=== PATIENT | male | born 1935 | race Caucasian/White ===

== ENCOUNTER 2018-05-21 11:31 | Observation (INO) ==
[2018-05-21 11:47] LABS: ABG Base Excess -9.8 mmol/L (-2.4-2.3); ABG HCO3 15.8 mmhg (22.0-26.0); ABG Oxygen Saturation 94 % (90-100); ABG PCO2 29.4 mmhg (35.0-45.0); ABG PH 7.35 mmol/L (7.35-7.45); ABG PO2 73.5 mmhg (80-100); ABG TCO2 16.7 mmhg (23-27)
[2018-05-21 11:49] LABS: Allen's Test Acceptable; Oxygen 21 %
[2018-05-21 11:55] LABS: Basophils # 0.1 K/mm3 (0-0.2); Basophils % 0.7 % (0.1-2.0); Eosinophils # 0.2 K/mm3 (0.0-0.4); Eosinophils % 2.3 % (0.1-12.0); Hematocrit 44.9 % (42.0-52.0); Hemoglobin 14.8 g/dL (14.1-18.0); Lymphocytes # 2.8 K/mm3 (0.7-4.5); Lymphocytes % 35.2 % (10-50); Mean Corpuscular Hemoglobin 28.3 pg (27.0-31.2); Mean Corpuscular Volume 85.8 fl (80-94); Mean Platelet Volume 7.8 fl (7.4-10.4); Monocytes # 0.5 K/mm3 (0.1-1.0); Monocytes % 5.9 % (1.7-9.3); Neutrophils # 4.5 K/mm3 (1.8-7.8); Neutrophils % 55.9 % (37.0-80.0); Platelet Count 240 K/mm3 (142-424); Red Blood Count 5.23 M/mm3 (4.60-6.20); Red Cell Distribution Width 13.9 % (11.5-17.5)
[2018-05-21 12:06] LABS: Anion Gap 21.7 mEq/L (5-15); Blood Urea Nitrogen 27 mg/dL (7-18); Calcium 8.9 mg/dL (8.5-10.1); Carbon Dioxide 19 mmol/L (21.0-32.0); Chloride 106 mmol/L (98-107); Glucose 139 mg/dL (74-106); Sodium 142 mmol/L (136-145)
[2018-05-21 12:08] LABS: Potassium 4.7 mmoL/L (3.5-5.1)
--- NOTE | 2018-05-21 12:25 | Emergency Department Note ---
ED Disposition Clinical Impression: Syncope and collapse Disposition: Admitted as Observation Condition on Discharge: Good Instructions: DI for Syncope in Adults (Fainting), DI for Syncope in Children (Fainting) Referrals: Provider,Referral, [Primary Care Provider] - Time of Disposition: 13:35 - Critical Care Critical Care Time: No Attestation: On 05/21/18, the high probability of a clinically significant, sudden or life threatening deterioration of the following system(s) required my full and direct attention, intervention and personal management. The time I documented below is in addition to time spent performing reported procedures but includes the following listed in this critical care notation. Medical Decision Making - Medical Records Medical records reviewed: Yes: I reviewed the patient's medical records. - Bony Inquiry Pt receiving controlled substance: No Bony was queried for this patient: No Vital Signs: 05/21/18 11:28 05/21/18 12:21 05/21/18 12:37 Temperature 96 F L 96.6 F L Temperature Source Tympanic Oral Pulse Rate [Left Radial] 86 71 61 Respiratory Rate 18 16 Blood Pressure [Right Arm] 158/93 H 131/74 147/71 H Blood Pressure Mean [Right Arm] 114 93 96 Blood Pressure Source [Right Arm] Automatic Cuff Automatic Cuff Automatic Cuff Blood Pressure Position [Right Arm] Sitting Supine Supine 02 Sat by Pulse Oximetry 95 95 95 Oxygen Delivery Method Room Air Room Air Room Air 05/21/18 13:04 Temperature 97.5 F L Temperature Source Oral Pulse Rate [Left Radial] 61 Respiratory Rate 16 Blood Pressure [Right Arm] 153/70 H Blood Pressure Mean [Right Arm] 97 Blood Pressure Source [Right Arm] Automatic Cuff Blood Pressure Position [Right Arm] Supine 02 Sat by Pulse Oximetry 96 Oxygen Delivery Method Room Air - Lab Data Lab results reviewed: Yes: I reviewed the patient's lab results. Lab Results 05/21/18 11:32: WBC 8.0, RBC 5.23, Hgb 14.8, Hct 44.9, MCV 85.8, MCH 28.3, MCHC 33.0, RDW 13.9, Plt Count 240, MPV 7.8, Neut % (Auto) 55.9, Lymph % (Auto) 35.2, [place] % (Auto) 5.9, Eos % (Auto) 2.3, Baso % (Auto) 0.7, Neut # (Auto) 4.5, Lymph # (Auto) 2.8, [place] # (Auto) 0.5, Eos # (Auto) 0.2, Baso # (Auto) 0.1 05/21/18 11:32: Sodium 142, Potassium 4.7, Chloride 106, Carbon Dioxide 19 L, Anion Gap 21.7 H, BUN 27 H, Creatinine 1.64 H, Estimated Creat Clear 39, Estimated GFR 40 L, Est GFR ( Amer) 49 L, Glucose 139 H, Calcium 8.9, Troponin I < 0.02 05/21/18 11:42: Specimen Source Right radial, O2 % 21, ABG pH 7.35, ABG pCO2 29.4 L, ABG pO2 73.5 L, ABG HCO3 15.8 L, ABG Total CO2 16.7 L, ABG O2 Saturation 94, ABG Base Excess -9.8 L, Lazaro Test Acceptable Result diagrams: 05/21/18 11:32 05/21/18 11:32 Orders (Tests/Meds): ED MEDICATIONS Generic Name Dose Route Start Last Admin Trade Name Freq PRN Reason Stop Dose Admin Sodium Chloride 10 ml 05/21/18 11:42 Saline Flush 10ml Syringe IV 06/20/18 11:41 NEEDED PRN Maintain IV Site Discontinued Medications Generic Name Dose Route Start Last Admin Trade Name Freq PRN Reason Stop Dose Admin Ondansetron HCl 4 mg 05/21/18 12:26 05/21/18 12:40 Zofran 4mg/2ml Vial IV 05/21/18 12:27 4 mg ONCE ONE Administration - Physician Consults Physician Consulted: dirk Reason -: Admission, Pt condition Comment/Response: obs/tele/ echo today General Adult HPI - General Chief complaint: Syncope Stated complaint: syncope Time Seen by Provider: 05/21/18 12:18 Mode of Arrival: EMS Source of Information: Patient, EMS Limitations: No Limitations Description of Symptoms (Recalled from ER Triage Doc. by RN): syncope - History of Present Illness HPI narrative: syncope, ruq pain on arrival only with palpation. Nausea is chief complaint on my visit. History ascvd, remote stent - Related Data Home Medications Medication Instructions Recorded Confirmed amlodipine 10 mg tablet 10 mg PO ONCE 04/13/17 02/22/18 aspirin 325 mg tablet 325 mg PO ONCE tab 04/13/17 02/22/18 indomethacin 25 mg capsule 25 mg PO TID 04/13/17 02/22/18 losartan 100 mg tablet 100 mg PO ONCE tab 04/13/17 02/22/18 metoprolol tartrate 25 mg tablet 25 mg PO DAILY 04/13/17 02/22/18 naproxen 500 mg tablet 500 mg PO Q12H PRN 04/13/17 02/22/18 rosuvastatin 10 mg tablet 10 mg PO ONCE 04/13/17 02/22/18 Allergies Allergy/AdvReac Type Severity Reaction Status Date / Time ramipril [RAMIPRIL] Allergy Mild Verified 10/12/17 09:06 [facility] History - Hepatitis A Screen Drug use history?: No High risk sexual behaviors?: No History of sexually transmitted infection?: No Currently employed?: No Childcare worker?: No Do you have indoor plumbing?: Yes Do you have electricity?: Yes Attestation statement:: This patient has been screened for Hepatitis A risk factors. I have reviewed the patient's past medical history: Yes Medical History: Reports:: Coronary Artery Disease, Hyperlipidemia, Hypertension, Myocardial Infarction Denies:: Cancer, Diabetes Mellitus Type 1, Diabetes Mellitus Type 2, Internal Pacemaker, MRSA, Seizures Other Medical History: Reports: Arthritis, Other. Denies: Blood Transfusion Reaction Other Surgeries: Yes: Colonoscopy, Coronary Stent, Other (eye surgery). No: Pacemaker Amputation: No Fractures: No - Social History Smoking Status: Former smoker Tobacco Type: cigarettes Alcohol Intake: never Substance Use Type: denies use Occupational Status: employed Housing: house Household Members: none - Psychiatric History Expresses thoughts of harming self/others: None Suicide Plan Description: No Plan Family Hx:: No significant family history ROS Obtained: Yes All systems reviewed & no additional complaints - Constitutional Constitutional: Denies chills, Denies fever(s) - ENT Ears, Nose, Mouth, and Throat: Reports system reviewed and no additional compla ints, except as docu, Denies sore throat, Denies throat swelling - Cardiovascular Cardiovascular: Denies chest pain, Denies chest pain at rest, Denies dyspnea - Respiratory Respiratory: Yes system reviewed and no additional complaints, except as docu, No chest congestion, No cough, No dyspnea on exertion - Gastrointestinal Gastrointestingal: Reports: abdominal pain, nausea. Denies: vomiting - Musculoskeletal Musculoskeletal: Denies joint stiffness, Denies joint swelling - Integumentary/Breasts Skin/Breast: Denies rash - Neurologic Neurologic: Denies focal weakness, Reports syncope Physical Exam - General General appearance: alert, in no apparent distress - Head Head exam: atraumatic, normocephalic, normal inspection - Eye Eye exam: Present: normal appearance, PERRL, EOMI - Neck Neck exam: Present: normal inspection, full ROM, trachea midline. Absent: meningismus, lymphadenopathy - Chest Chest inspection: Present: normal inspection, symmetric chest wall rise. Absent: tenderness - Respiratory Respiratory exam: Present: normal lung sounds bilaterally. Absent: respiratory distress - Cardiovascular Cardiovascular exam: Present: regular rate, normal rhythm. Absent: JVD - Abdominal Exam Abdominal exam: Present: soft, tenderness. Absent: distention, mass Abdominal tenderness: Present: RUQ - Neurological Exam Neurological exam: Present: alert, oriented X3 - Psychiatric Psychiatric exam: Present: normal affect, normal mood - Skin Skin exam: Present: warm, dry, intact, normal color
--- NOTE | 2018-05-21 15:10 | Pharmacy Consult Notes ---
[facility] Pharmacy VTE Monitoring - Patient Demographics Admission date: 05/21/18 Report Date: 05/21/18 Time: 15:10 Allergies/Adverse Reactions: Patient Allergies ramipril [RAMIPRIL] Allergy (Mild, Verified 10/12/17 09:06) Height: 1.73 m Weight: 83.915 kg Patient Problems: Current Active Problems Syncope and collapse (Acute) - VTE Risk Labs: VTE Related Lab Results Hgb 14.8 g/dL (14.1-18.0) 05/21/18 11:32 Hct 44.9 % (42.0-52.0) 05/21/18 11:32 Plt Count 240 K/mm3 (142-424) 05/21/18 11:32 BUN 27 mg/dL (7-18) H 05/21/18 11:32 Creatinine 1.64 mg/dL (0.70-1.30) H 05/21/18 11:32 Estimated Creat Clear 39 mL/min (50-200) 05/21/18 11:32 - Prophylaxis VTE Prophylaxis Ordered?: Yes Types of VTE Prophylaxis: TEDS Thigh High Location of Applied Device: Bilateral Lower Extremeties - VTE Diagnosis Confirmed Treatment or plan recommended: Continue Current Treatment
--- NOTE | 2018-05-21 16:32 | History & Physical Report ---
*Admission Date: 05/21/18 *Chief complaint: syncopal episode *History of present illness: 83 year old male presents to ER via EMS after a witnessed syncopal episode. 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 Denies lightheadedness, changes in vision, headache, weakness, chest pain, pressure, palpitations, or SOB. Imaging in the ER was all negative. Had an episode similar to this three years ago. Dr Alexis took him off metformin after doing blood work and noting he was within normal glucose range. History of cardiac stenting in [address] Garrison, takes Aspirin 325 mg daily. [facility] History Medical History: Reports:: Coronary Artery Disease, Hyperlipidemia, Hypertension, Myocardial Infarction Denies:: Cancer, Diabetes Mellitus Type 1, Diabetes Mellitus Type 2, Internal Pacemaker, MRSA, Seizures *Have you ever received a pneumonia vaccine?: Yes *Have you received a flu vaccine this season?: Yes Other Medical History: Reports: Arthritis, Cataracts, Other. Denies: Blood Transfusion Reaction Other Surgeries: Yes: Colonoscopy, Coronary Stent, Other (eye surgery). No: Pacemaker Amputation: No Fractures: No - *Social History Educational Level: Completed Grade School Smoking Status: Former smoker Tobacco Type: cigarettes # Packs/Day (cigarettes): 2 Smoking End Date: 20 years ago Alcohol Intake: never Substance Use Type: denies use *Occupational Status:: employed Housing: house Household Members: none *Travel in the last 8 weeks: None - Psychiatric History Expresses thoughts of harming self/others: None Suicide Plan Description: No Plan Family Hx:: No significant family history Review of Systems - Constitutional Denies fever(s), Denies headache(s), Denies weakness - Eyes Denies blurry vision, Denies change in vision, Denies loss of vision - *Cardiovascular Denies chest pain, Denies generalized swelling, Denies irregular heart rhythm, Denies rapid, pounding, or irregular heartbeat - *Respiratory Denies shortness of breath with activity - *Gastrointestinal Denies abdominal pain, Denies nausea, Denies vomiting - *Musculoskeletal Denies abnormal walking, Denies numbness - *Neurologic Reports fainting, Denies abnormal walking, Denies abnormal movements, Denies unsteadiness, Denies dizziness, Denies localized weakness, Denies headache(s), Denies weakness Meds Home Medications Medication Instructions Recorded Confirmed Type amlodipine 10 mg tablet 10 mg PO DAILY 04/13/17 05/21/18 History aspirin 325 mg tablet 325 mg PO DAILY tab 04/13/17 05/21/18 History indomethacin 25 mg capsule 25 mg PO TID 04/13/17 05/21/18 History losartan 100 mg tablet 100 mg PO DAILY tab 04/13/17 05/21/18 History metoprolol tartrate 25 mg tablet 25 mg PO BID 04/13/17 05/21/18 History naproxen 500 mg tablet 500 mg PO Q12H PRN 04/13/17 05/21/18 History Meclizine HCl [Meclizine 12.5mg 12.5 mg PO TIDP PRN 05/21/18 05/21/18 History Tab] Rosuvastatin Calcium 10 mg PO HS 05/21/18 05/21/18 History Allergies Allergy/AdvReac Type Severity Reaction Status Date / Time ramipril [RAMIPRIL] Allergy Mild Verified 10/12/17 09:06 Exam Vital signs and Labs for Last 24 Hours: Temp Pulse Resp BP Pulse Ox 98.8 F 63 20 170/88 H 96 05/21/18 15:02 05/21/18 15:02 05/21/18 15:02 05/21/18 15:02 05/21/18 15:02 Laboratory Results - last 24 hr 05/21/18 11:32: WBC 8.0, RBC 5.23, Hgb 14.8, Hct 44.9, MCV 85.8, MCH 28.3, MCHC 33.0, RDW 13.9, Plt Count 240, MPV 7.8, Neut % (Auto) 55.9, Lymph % (Auto) 35.2, [place] % (Auto) 5.9, Eos % (Auto) 2.3, Baso % (Auto) 0.7, Neut # (Auto) 4.5, Lymph # (Auto) 2.8, [place] # (Auto) 0.5, Eos # (Auto) 0.2, Baso # (Auto) 0.1 05/21/18 11:32: Sodium 142, Potassium 4.7, Chloride 106, Carbon Dioxide 19 L, Anion Gap 21.7 H, BUN 27 H, Creatinine 1.64 H, Estimated Creat Clear 39, Estimated GFR 40 L, Est GFR ( Amer) 49 L, Glucose 139 H, Calcium 8.9, Troponin I < 0.02 05/21/18 11:42: Specimen Source Right radial, O2 % 21, ABG pH 7.35, ABG pCO2 29.4 L, ABG pO2 73.5 L, ABG HCO3 15.8 L, ABG Total CO2 16.7 L, ABG O2 Saturation 94, ABG Base Excess -9.8 L, Lazaro Test Acceptable I & O for Last 24 hours: Intake & Output 05/18/18 05/19/18 05/20/18 05/21/18 23:59 23:59 23:59 23:59 Intake Total 1000 / 1000 Output Total 500 / 500 Balance 500 / 500 Weight 185 lb - Constitutional no acute distress, average body habitus, cooperative - *Routine HEENT Exam Head: Present: normocephalic, atraumatic Eye: Present: EOMI, PERRL ENT: Present: mucous membranes moist - *Routine Respiratory Exam Present: CTA bilaterally. Absent: accessory muscle use - *Routine Cardiovascular Exam Present: RRR, Normal S1, Normal S2. Absent: murmur, bradycardia, tachycardia, irregular rhythm - *Routine Abdominal Exam Present: soft, normoactive bowel sounds. Absent: tenderness, distended - *Routine Extremities Exam Present: edema. Absent: cyanosis Comments: 1 + pedal edema - *Routine Skin Exam Present: intact, dry. Absent: cyanosis, pallor - *Routine Neurological Exam Present: alert, oriented X3, moving all extremities, normal tone. Absent: pronator drift, altered mental status, facial asymmetry - Routine Psychiatric Exam Present: normal affect, normal thought process Assessment and Plan - Assessment and plan all Dx Assessment and Plan for all problems:: Will admit to second floor med surge unit monitoring of cardiac rate and rhythm, IVFs NS at 50 ml/hr, repeat labs in AM. Echocardiogram has been performed, will await results.
--- NOTE | 2018-05-21 20:08 | Cardiology Report ---
PROCEDURE: 2-D M-mode and color Doppler study INDICATIONS FOR THE TEST: Chest pain COPD Heart Murmur Tobacco Smoking Palpitations Fatigue Syncope Edema Hypertension+Diabetes Mellitus Rheumatic Fever SOB KUO Obesity Hyperlipidemia+ Family History HD Additional History SYNCOPE, CAD PATIENT INFORMATION HEIGHT: 68 WEIGHT:185 GENDER: Male B/P:128/80 2-D/M-MODE INTERPRETATION: 2-D MEASUREMENTS OBSERVED VALUES IN CMS Right Ventricular Dimension (RVDd) 2.2 Interventricular Septum (Thickness)(IVsd) 1.4 Left Ventricular Internal Dimensions(LVIDd) 4.7 Left Ventricular Posterior Wall (Thickness)(LVPWd) 1.5 Aortic Root 3.5 Aortic Cusp Separation 2.0 Left Atrial Dimensions (LAD) 4.1 2D 1. Left atrium is mildly enlarged, left ventricle is normal size, mild concentric left ventricular hypertrophy, visually estimated ejection fraction of 55% with no regional wall motion abnormality. 2. The right atrium and right ventricle are normal size and contractility. 3. The aortic valve is thickened and calcified leaflet continue to display good mobility. 4. The mitral and tricuspid valvular grossly normal. 5. The pulmonic valve is poorly visualized. 6. No significant pericardial effusion noted. DOPPLER INTERROGATION: Doppler interrogation of the aortic, mitral and tricuspid valvular presence of mild aortic, mild mitral and tricuspid regurgitation, tricuspid regurgitation jet velocity is inadequate for calculation of the right ventricular systolic pressure, grade 1 diastolic dysfunction seen with tissue Doppler evidence of raised left atrial pressure, inferior vena cava is normal size with normal inspiratory collapse. CONCLUSION: 1. Mildly enlarged left atrium, normal left ventricular size, mild concentric left ventricular hypertrophy, visually estimated ejection fraction of 55% with no regional wall motion abnormality. Grade 1 diastolic dysfunction with tissue Doppler evidence of raised left atrial pressure. 2. Mild aortic, mild mitral and tricuspid regurgitation. 3. No significant pericardial effusion noted.
[2018-05-22 05:55] LABS: Basophils % 0.5 % (0.1-2.0); Eosinophils # 0.1 K/mm3 (0.0-0.4); Eosinophils % 1.9 % (0.1-12.0); Hematocrit 38.1 % (42.0-52.0); Mean Corpuscular Hemoglobin 27.8 pg (27.0-31.2); Mean Corpuscular Volume 84.4 fl (80-94); Monocytes # 0.7 K/mm3 (0.1-1.0); Monocytes % 9.1 % (1.7-9.3); Neutrophils # 4.7 K/mm3 (1.8-7.8); Neutrophils % 62.5 % (37.0-80.0); Platelet Count 197 K/mm3 (142-424); Red Blood Count 4.51 M/mm3 (4.60-6.20); Red Cell Distribution Width 14.1 % (11.5-17.5); White Blood Count 7.5 K/mm3 (4.8-10.8)
[2018-05-22 06:02] LABS: Anion Gap 15.2 mEq/L (5-15); Calcium 8.6 mg/dL (8.5-10.1); Potassium 4.2 mmoL/L (3.5-5.1)
[2018-05-22 06:20] LABS: Hemoglobin 12.6 g/dL (14.1-18.0)
--- NOTE | 2018-05-22 07:33 | Discharge Summary ---
General - General Admission date:: 05/21/18 Discharge date: 05/22/18 HPI HPI: 83 year old male presents to ER via EMS after a witnessed syncopal episode. 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 Denies lightheadedness, changes in vision, headache, weakness, chest pain, pressure, palpitations, or SOB. Imaging in the ER was all negative. Had an episode similar to this three years ago. Dr Alexis took him off metformin after doing blood work and noting he was within normal glucose range. History of cardiac stenting in [address] Garrison, takes Aspirin 325 mg daily. Hospital Course Hospital Course: Patient was admitted to a telemetry bed and observed overnight. He had no further episodes of presyncopal symptoms or syncope. Patient performs self- catheterization without complications. He denied chest pain or shortness of breath. He ambulated without symptoms. On the morning of May 22 patient was discharged home. He will follow-up in the office in 1 week. He has been asked to check his blood pressure twice daily prior to his upcoming visit Objective Vital signs: Temp Pulse Resp BP Pulse Ox 97.8 F 71 18 129/59 L 96 05/22/18 04:00 05/22/18 04:00 05/22/18 04:00 05/22/18 04:00 05/22/18 04:00 no acute distress - *Routine Neck Exam Present: supple. Absent: carotid bruit - *Routine Respiratory Exam Present: CTA bilaterally - *Routine Cardiovascular Exam Present: Normal S1, Normal S2. Absent: murmur - *Routine Neurological Exam Present: oriented X3, CN II-XII intact, normal reflexes. Absent: sensory deficit, motor deficit Results Labs on day of discharge: Labs from last 24 hours 05/22/18 05/22/18 05/21/18 05:43 05:43 19:55 WBC 7.5 RBC 4.51 L Hgb 12.6 L D Hct 38.1 L MCV 84.4 MCH 27.8 MCHC 33.0 RDW 14.1 Plt Count 197 MPV 8.0 Neut % (Auto) 62.5 Lymph % (Auto) 26.0 [place] % (Auto) 9.1 Eos % (Auto) 1.9 Baso % (Auto) 0.5 Neut # (Auto) 4.7 Lymph # (Auto) 2.0 [place] # (Auto) 0.7 Eos # (Auto) 0.1 Baso # (Auto) 0.0 Specimen Source O2 % ABG pH ABG pCO2 ABG pO2 ABG HCO3 ABG Total CO2 ABG O2 Saturation ABG Base Excess Lazaro Test Sodium 145 Potassium 4.2 Chloride 111 H Carbon Dioxide 23 D Anion Gap 15.2 H BUN 23 H Creatinine 1.65 H Estimated Creat Clear 39 Estimated GFR 40 L Est GFR ( Amer) 48 L Glucose 120 H Calcium 8.6 Troponin I 0.04 05/21/18 05/21/18 05/21/18 16:50 11:42 11:32 WBC RBC Hgb Hct MCV MCH MCHC RDW Plt Count MPV Neut % (Auto) Lymph % (Auto) [place] % (Auto) Eos % (Auto) Baso % (Auto) Neut # (Auto) Lymph # (Auto) [place] # (Auto) Eos # (Auto) Baso # (Auto) Specimen Source Right radial O2 % 21 ABG pH 7.35 ABG pCO2 29.4 L ABG pO2 73.5 L ABG HCO3 15.8 L ABG Total CO2 16.7 L ABG O2 Saturation 94 ABG Base Excess -9.8 L Lazaro Test Acceptable Sodium 142 Potassium 4.7 Chloride 106 Carbon Dioxide 19 L Anion Gap 21.7 H BUN 27 H Creatinine 1.64 H Estimated Creat Clear 39 Estimated GFR 40 L Est GFR ( Amer) 49 L Glucose 139 H Calcium 8.9 Troponin I 0.04 < 0.02 05/21/18 11:32 WBC 8.0 RBC 5.23 Hgb 14.8 Hct 44.9 MCV 85.8 MCH 28.3 MCHC 33.0 RDW 13.9 Plt Count 240 MPV 7.8 Neut % (Auto) 55.9 Lymph % (Auto) 35.2 [place] % (Auto) 5.9 Eos % (Auto) 2.3 Baso % (Auto) 0.7 Neut # (Auto) 4.5 Lymph # (Auto) 2.8 [place] # (Auto) 0.5 Eos # (Auto) 0.2 Baso # (Auto) 0.1 Specimen Source O2 % ABG pH ABG pCO2 ABG pO2 ABG HCO3 ABG Total CO2 ABG O2 Saturation ABG Base Excess Lazaro Test Sodium Potassium Chloride Carbon Dioxide Anion Gap BUN Creatinine Estimated Creat Clear Estimated GFR Est GFR ( Amer) Glucose Calcium Troponin I DS: Diagnosis - Discharge Diagnosis (1) Syncope and collapse Status: Acute Discharge Plan - Patient Discharge Instructions ACTIVITY: Continue current activity DIET: continue same diet Patient Instructions: DI for Syncope in Adults (Fainting) - Follow up Plan Follow up with: Delmar Alexis MD [Staff Physician] - 05/29/18 2:00 pm (Please bring all medicines to your follow up visit) Disposition: Home, Self-Long-Term Medications: Home Medications Medication Instructions Recorded Confirmed Type amlodipine 10 mg tablet 10 mg PO DAILY 04/13/17 05/21/18 History aspirin 325 mg tablet 325 mg PO DAILY tab 04/13/17 05/21/18 History indomethacin 25 mg capsule 25 mg PO TID 04/13/17 05/21/18 History losartan 100 mg tablet 100 mg PO DAILY tab 04/13/17 05/21/18 History metoprolol tartrate 25 mg tablet 25 mg PO BID 04/13/17 05/21/18 History naproxen 500 mg tablet 500 mg PO Q12H PRN 04/13/17 05/21/18 History Meclizine HCl [Meclizine 12.5mg 12.5 mg PO TIDP PRN 05/21/18 05/21/18 History Tab] Rosuvastatin Calcium 10 mg PO HS 05/21/18 05/21/18 History Prescriptions/Medication Reconciliation: Continue amlodipine 10 mg tablet 10 mg PO DAILY metoprolol tartrate 25 mg tablet 25 mg PO BID naproxen 500 mg tablet 500 mg PO Q12H PRN PRN Reason: PAIN aspirin 325 mg tablet 325 mg PO DAILY tab losartan 100 mg tablet 100 mg PO DAILY tab indomethacin 25 mg capsule 25 mg PO TID Rosuvastatin Calcium 10 mg PO HS Meclizine HCl [Meclizine 12.5mg Tab] 12.5 mg PO TIDP PRN PRN Reason: Dizziness
== END 2018-05-22 09:00 | disposition home or self-care (01) ==
LOC: ER 11:31 → 2ND 11:31
PROVIDERS: ADMIT Family Medicine; ATTEND Family Medicine
CPT/HCPCS: 36415; 70450; 71010; 71045; 74176; 80048; 82803; 84484; 85025; 93005; 93306; 96365; 99285; G0378; J2405